=== PATIENT | male | born 1965 | race African-American/Black ===

== ENCOUNTER 2017-12-26 13:05 | Emergency (ER) | payer OTHER ==
[2017-12-26 13:34] VITALS: BP 161/75
[2017-12-26] MEDS ORDERED: KETOROLAC TROMETHAMINE 60 MG/2 ML SDV IM ONE (14:09)
[2017-12-26] MEDS ORDERED: HYDROCODONE/ACETAMINOPHEN 5-325 MG TABLET PO ONE (14:10)
--- NOTE | 2017-12-26 15:27 | RADIOLOGY REPORT (SQ) ---
EXAM DESCRIPTION: FEMUR LEFT COMPLETED DATE/TIME: 12/26/2017 2:55 pm REASON FOR STUDY: left posterior leg pain COMPARISON: None. NUMBER OF VIEWS: Five views. TECHNIQUE: Two radiographic images acquired of the left femur to include hip and knee in at least on e projection. LIMITATIONS: None. FINDINGS: MINERALIZATION: Normal. BONES: Smooth cortical thickening with multifocal periosteal reaction is seen along the posteromedial cortex spanning a region approximately 22 cm long just caudal to the lesser tubercle. E frontal tamika ge of the lower femur suggests infiltrative marrow process. SOFT TISSUES: No obvious mass, swelling, gas. OTHER: No other significant finding. IMPRESSION: 22 cm long segment of smooth cortical thickening with multifocal periosteal reaction is a nonspecific finding. While differential considerations include osteomyelitis, given the appearance of infiltrative process involving the marrow, consider neoplastic etiology. TECHNICAL DOCUMENTATION: JOB ID: [id number] [employer]- All Rights Reserved Reading location - IP/workstation name: [email or web address]
--- NOTE | 2017-12-26 16:19 | ER Document Report ---
HPI - HPI Pain Level: 3 Notes: Patient is a 52-year-old male who presents with chief complaint of left leg injury. Patient states that he was moving a large piece of pipe when he felt a pop in his leg. Patient reports pain but reports that he is able to ambulate with moderate difficulty. Patient denies any history of previous trauma to this extremity. - CONSTITUTIONAL Constitutional: DENIES: Fever, Chills - EENT EENT: DENIES: Sore Throat, Ear Pain, Eye problems - NEURO Neurology: DENIES: Headache, Weakness, Vision blurred, Dizzinesss / Vertigo - CARDIOVASCULAR Cardiovascular: DENIES: Chest pain - RESPIRATORY Respiratory: DENIES: Trouble Breathing, Coughing - GASTROINTESTINAL Gastrointestinal: DENIES: Abdominal Pain, Black / Bloody Stools - URINARY Urinary: DENIES: Dysuria, Urgency, Frequency - MUSCULOSKELETAL Musculoskeletal: REPORTS: Extremity pain Past Medical History - General Information source: Patient - Social History Smoking Status: Never Smoker Chew tobacco use (# tins/day): No Frequency of alcohol use: Occasional Drug Abuse: None Family History: Reviewed & Not Pertinent Patient has suicidal ideation: No Patient has homicidal ideation: No - Past Medical History Cardiac Medical History: Reports: Hx Hypertension Renal/ Medical History: Denies: Hx Peritoneal Dialysis Vertical Provider Document - CONSTITUTIONAL Notes: PHYSICAL EXAMINATION: GENERAL: Well-appearing, well-nourished and in no acute distress. HEAD: Atraumatic, normocephalic. EYES: Pupils equal round extraocular movements intact, conjunctiva are normal. ENT: Nares patent NECK: Normal range of motion LUNGS: No respiratory distress Musculoskeletal: Normal range of motion, no abnormality noted on physical exam to left leg, normal motor and sensation distal to area of injury. No swelling, erythema or ecchymosis noted. NEUROLOGICAL: Normal speech, normal gait. PSYCH: Normal mood, normal affect. SKIN: Warm, Dry, normal turgor, no rashes or lesions noted. - INFECTION CONTROL TRAVEL OUTSIDE OF THE [place] IN LAST 30 DAYS: No Course - Re-evaluation Re-evalutation: X-ray is unremarkable and does not show any acute fracture or dislocation. There is a 22 cm long segment of smooth cortical thickening with a motor focal periosteal reaction. This was discussed with Dr. Mcdonald and films were reviewed. Patient was informed of findings on x-ray, copy of report was given to patient. Patient will follow up with his primary care provider. - Vital Signs Vital signs: Temp Pulse Resp BP Pulse Ox 98.4 F 92 20 161/75 H 95 12/26/17 13:33 12/26/17 13:33 12/26/17 13:33 12/26/17 13:33 12/26/17 13:33 Discharge - Discharge Clinical Impression: Muscle strain Leg pain Qualifiers: Laterality: left Qualified Code(s): M79.605 - Pain in left leg Condition: Stable Disposition: HOME, SELF-CARE Additional Instructions: Muscle Strain You have strained a muscle -- torn the fibers within the muscle. This often occurs with strenuous exertion, or during an injury that suddenly stretches the muscle. The seriousness of a strain varies. Some strains heal within days, others cause problems for months. X-rays cannot show a muscle strain. X-rays are taken only if symptoms suggest that a fracture could be present. The usual treatment of a muscle strain is rest and ice packs. Sometimes, a sling, splint, or crutches may be necessary to rest the muscle. The muscle can be used again once pain subsides. Severe strains require a special exercise and stretching program to prevent permanent stiffness and disability. Your doctor will advise you if this will be necessary. Call the doctor immediately if pain or swelling becomes severe, or if numbness or discoloration develop. Muscle Relaxers Muscle relaxing medications are usually prescribed for acute muscle spasm or injury to the neck and back. They are often combined with antiinflammatory pain medication for increased relief. You may stop the muscle relaxer when the pain and stiffness have improved. Start the medication again if spasms recur. Muscle relaxers may cause drowsiness, especially with the first dose. Do not operate machinery or drive while under the effects of the medication. Most muscle relaxers last up to 24 hours. Do not combine the medication with alcohol. The x-ray done today does not show any evidence of fracture or dislocation. As we discussed, a copy of the radiology report has been given to you due to the possible incidental findings. I would like you to take this copy to your primary care provider and discuss it with him. Take the medications I have prescribed as directed. Take ibuprofen 600 mg every 6 hours for pain. You may also take acetaminophen every 4 hours. Prescriptions: Lidocaine [Lidoderm 5% (700 mg) Transdermal Patch] 1 patch TP DAILY #30 adh..patch Methocarbamol [Robaxin 750 mg Tablet] 750 mg PO Q6H #20 tablet Referrals: ONEL CARLSON MD [ACTIVE STAFF] - Follow up as needed NATHANIEL BASS MD [Primary Care Provider] - Follow up as needed
== END 2017-12-26 16:34 | disposition home or self-care (01) ==
LOC: ER 13:05
DX: M79.605 Pain in left leg (principal); I10 Essential (primary) hypertension
CPT/HCPCS: 99283; 96372; 73552; J1885